=== PATIENT | male | born 1960 | race Caucasian/White ===

== ENCOUNTER 2022-01-12 16:22 | Observation (INO) | payer BC ==
[~2022-01-12] VITALS: Ht 180.3 cm; Wt 80.0 kg
[~2022-01-12 16:22] MED LIST: ALEV220C2 PO; CENTTAB47 PO
[2022-01-12] MEDS ORDERED: NS 1,000 ML IV ONE (16:30)
[2022-01-12 16:51] LABS: BASO % 0.3 % (0.0-1.0); EOS # 0.1 10^3/uL (0.0-0.5); HEMATOCRIT 40.1 % (42.0-52.0); HEMOGLOBIN 13.7 g/dl (13.5-17.5); LYMPH # 2.1 10^3/uL (1.5-5.0); LYMPH % 21.9 % (24.0-44.0); MEAN CORPUSCULAR HEMOGLOBIN 32.8 pg (27.0-33.0); MEAN CORPUSCULAR HGB CONC 34.2 g/dl (32.0-36.5); MEAN CORPUSCULAR VOLUME 95.9 fl (80.0-96.0); MONO # 0.6 10^3/uL (0.0-0.8); MONO % 6.4 % (2.0-8.0); NEUTROPHILS # 6.5 10^3/uL (1.5-8.5); NEUTROPHILS % 68.9 % (36.0-66.0); PLATELET COUNT, AUTOMATED 239 10^3/uL (150-450); RED BLOOD COUNT 4.18 10^6/uL (4.30-6.10); WHITE BLOOD COUNT 9.4 10^3/uL (4.0-10.0)
[2022-01-12] MEDS ORDERED: ISOVUE-370 76% 100ML VIAL As Ordered ONE ×2 (16:59→17:22)
[2022-01-12 17:12] LABS: INR 1.02; PROTHROMBIN TIME 13.8 SECONDS (12.7-14.5)
[2022-01-12 17:25] LABS: ALBUMIN 3.9 GM/DL (3.2-5.2); ALT/SGPT 28 U/L (12-78); AMYLASE 75 U/L (25-115); BILIRUBIN,DIRECT < 0.1 MG/DL (0.0-0.2); BILIRUBIN,TOTAL 0.4 MG/DL (0.2-1.0); ETHYL ALCOHOL (ETHANOL) 0.212 % (0.000-0.010); LIPASE 151 U/L (73-393); TOTAL PROTEIN 7.4 GM/DL (6.4-8.2)
[2022-01-12 17:26] LABS: CK-MB VALUE MASS 2.3 NG/ML (<3.6); MB/CK RELATIVE INDEX 0.83 (< OR =4)
[2022-01-12 17:46] LABS: RSV AMPLIFICATION NEGATIVE (NEGATIVE)
[2022-01-12 18:08] LABS: APPEARANCE, URINE CLEAR (CLEAR); BACTERIA, URINE AUTO NEGATIVE (NEGATIVE); BILIRUBIN, URINE AUTO NEGATIVE (NEGATIVE); BLOOD, URINE BLOOD 2+ (NEGATIVE); COLOR, URINE STRAW (YELLOW); GLUCOSE, URINE (UA) AUTO NEGATIVE (NEGATIVE); KETONE, URINE AUTO NEGATIVE (NEGATIVE); LEUKOCYTE ESTERASE, URINE AUTO NEGATIVE (NEGATIVE); MUCUS, URINE SMALL (NEGATIVE); NITRITE, URINE AUTO NEGATIVE (NEGATIVE); PROTEIN, URINE AUTO NEGATIVE (NEGATIVE); RBC, URINE AUTO 2 /HPF (0-3); SPECIFIC GRAVITY URINE AUTO 1.009 (1.002-1.035); SQUAMOUS EPITHELIAL CELL UR AU 0 /HPF (0-6); UROBILINOGEN, URINE AUTO 0.2 mg/dL (0.0-2.0); WBC, URINE AUTO 1 /HPF (0-3)
[2022-01-12 18:23] LABS: AMPHETAMINES LEVEL URINE NEGATIVE (NEGATIVE); BARBITURATES URINE NEGATIVE (NEGATIVE); BENZODIAZEPINES URINE NEGATIVE (NEGATIVE); CANNABINOIDS URINE POSITIVE (NEGATIVE); COCAINE METABOLITE URINE NEGATIVE (NEGATIVE); METHADONE URINE NEGATIVE (NEGATIVE); OPIATES URINE NEGATIVE (NEGATIVE); PHENCYCLIDINE URINE NEGATIVE (NEGATIVE)
[2022-01-12] MEDS ORDERED: MORPHINE 4 MG/ML 1ML VIAL/SYRINGE IV ONE (22:50)
[2022-01-13] MEDS ORDERED: NORCO, ANEXSIA 5/325MG TABLET (HYDROcodone/ACETAMINOPHEN) PO PRN (00:05)
[2022-01-13] MEDS ORDERED: SERT50TA29 PO (00:11)
[2022-01-13] MEDS ORDERED: ATOR1TAB19 PO (00:11)
[2022-01-13] MEDS ORDERED: ACET-683 PO (00:11)
[2022-01-13] MEDS ORDERED: HOME MED LIST COMPLETE! XX SCH (00:15)
[2022-01-13] MEDS ORDERED: HYDR-3715 PO (07:24)
[2022-01-13 09:00] VITALS: BP 139/85
== END 2022-01-13 10:17 | disposition home or self-care (01) ==
LOC: M ED 16:22 → EDBD 16:22 → M ED INP 16:23
PROVIDERS: ADMIT Surgery; ATTEND Surgery
DX: S09.90XA Unspecified injury of head, initial encounter (principal); S27.322A Contusion of lung, bilateral, initial encounter; S80.211A Abrasion, right knee, initial encounter; S80.212A Abrasion, left knee, initial encounter; S60.511A Abrasion of right hand, initial encounter; S60.512A Abrasion of left hand, initial encounter; S70.212A Abrasion, left hip, initial encounter; S22.43XA Multiple fractures of ribs, bilateral, initial encounter for closed fracture; V29.40XA Motorcycle driver injured in collision with unspecified motor vehicles in traffic accident, initial encounter; Y92.410 Unspecified street and highway as the place of occurrence of the external cause; Y99.9 Unspecified external cause status; E78.5 Hyperlipidemia, unspecified; F32.9 Major depressive disorder, single episode, unspecified; Z79.899 Other long term (current) drug therapy; Y93.55 Activity, bike riding
CPT/HCPCS: 36415; 70450; 70551; 71045; 71260; 72125; 72128; 72131; 72170; 74177; 80047; 80076; 80307; 81001; 82077; 82150; 82550; 82553; 83605; 83690; 85025; 85610; 85730; 86850; 86900; 86901; 87631; 93005; 93041; 94760; 96374; 96375; 99285; J2270; Q9967

== ENCOUNTER → 2022-01-23 | Outpatient (CLI) | payer BC ==
[~2022-01-23] MED LIST changes: +ACET-683 PO; +ATOR1TAB19 PO; +HYDR-3715 PO; +SERT50TA29 PO
== END ==
LOC: M OUTALCOH 08:28
PROVIDERS: ATTEND Psychiatry & Neurology Psychiatry
DX: Z02.89 Encounter for other administrative examinations (principal)

== ENCOUNTER → 2022-02-18 | Outpatient (RCR) | payer BC | LOC: M OUTALCOH 01-29 09:22 | PROVIDERS: ATTEND Psychiatry & Neurology Psychiatry | DX: F10.20 Alcohol dependence, uncomplicated (principal); F12.10 Cannabis abuse, uncomplicated ==

== ENCOUNTER → 2022-03-20 | Outpatient (RCR) | payer BC | LOC: M OUTALCOH 02-25 16:00 | PROVIDERS: ATTEND Psychiatry & Neurology Psychiatry | DX: F10.20 Alcohol dependence, uncomplicated (principal); F12.10 Cannabis abuse, uncomplicated ==

== ENCOUNTER 2022-03-26 13:30 | Outpatient (RCR) | payer BC | END 2022-04-20 | LOC: M OUTALCOH 13:30 | PROVIDERS: ATTEND Psychiatry & Neurology Psychiatry | DX: F10.10 Alcohol abuse, uncomplicated (principal); F12.10 Cannabis abuse, uncomplicated ==

== ENCOUNTER 2022-04-16 15:00 | Outpatient (RCR) | payer BC | END 2022-04-20 | LOC: M OUTALCOH 15:00 | PROVIDERS: ATTEND Psychiatry & Neurology Psychiatry | DX: F10.10 Alcohol abuse, uncomplicated (principal); F12.10 Cannabis abuse, uncomplicated ==

== ENCOUNTER 2022-08-02 06:15 | Emergency (ER) | payer BC ==
[~2022-08-02] VITALS: Ht 180.3 cm; Wt 84.1 kg
[2022-08-02 06:16] VITALS: BP 136/89
== END 2022-08-02 09:02 | disposition left against medical advice (07) ==
LOC: M ED 06:15
DX: Z53.21 Procedure and treatment not carried out due to patient leaving prior to being seen by health care provider (principal)

== ENCOUNTER 2022-08-02 10:29 | Emergency (ER) | payer BC ==
[~2022-08-02] VITALS: Ht 177.8 cm; Wt 83.2 kg
[2022-08-02] MEDS ORDERED: BOOSTRIX/ADACEL VACCINE (DIPHTH/PERTUSS/ACELL/TETANUS) 0.5ML SYR IM.IMMUN ONE (11:15)
[2022-08-02] MEDS ORDERED: LIDOCAINE W/EPINEPHRINE 1% 20ML VIAL SC ONE (11:15)
[2022-08-02] MEDS ORDERED: BACITRACIN OINTMENT 30GM TUBE TOP ONE (12:50)
[2022-08-02 13:05] VITALS: BP 118/70
== END 2022-08-02 13:07 | disposition home or self-care (01) ==
LOC: M ED 10:29
DX: S51.811A Laceration without foreign body of right forearm, initial encounter (principal); W26.8XXA Contact with other sharp object(s), not elsewhere classified, initial encounter; Y92.9 Unspecified place or not applicable; Y93.89 Activity, other specified; Y99.0 Civilian activity done for income or pay; Z23 Encounter for immunization

== ENCOUNTER → 2022-09-08 | Outpatient (CLI) | payer BC ==
[2022-09-08 14:36] LABS: BASO % 0.4 % (0.0-1.0); EOS # 0.1 10^3/uL (0.0-0.5); EOS % 1.2 % (0.0-3.0); HEMATOCRIT 37.8 % (42.0-52.0); HEMOGLOBIN 12.2 g/dl (13.5-17.5); LYMPH # 1.9 10^3/uL (1.5-5.0); LYMPH % 22.1 % (24.0-44.0); MEAN CORPUSCULAR HGB CONC 32.3 g/dl (32.0-36.5); MEAN CORPUSCULAR VOLUME 96.2 fl (80.0-96.0); MONO # 0.6 10^3/uL (0.0-0.8); MONO % 7.2 % (2.0-8.0); NEUTROPHILS # 5.8 10^3/uL (1.5-8.5); NEUTROPHILS % 68.7 % (36.0-66.0); PLATELET COUNT, AUTOMATED 266 10^3/uL (150-450); RED BLOOD COUNT 3.93 10^6/uL (4.30-6.10); WHITE BLOOD COUNT 8.5 10^3/uL (4.0-10.0)
[2022-09-08 15:05] LABS: RHEUMATOID FACTOR QUANT < 3.5 IU/ML (<14)
[2022-09-08 15:44] LABS: ERYTHROCYTE SEDIMENTATION RATE 56 mm/hr (0-20)
[2022-09-09 17:07] LABS: ANTINUCLEAR ANTIBODIES DIRECT Negative (Negative)
== END ==
LOC: M PLALAB 12:06
PROVIDERS: ATTEND Physician Assistant
DX: M17.12 Unilateral primary osteoarthritis, left knee (principal)

== ENCOUNTER → 2022-12-31 | Outpatient (REF) | payer BC ==
[2022-12-31 14:54] LABS: FERRITIN 126.1 NG/ML (10.5-307.3); FOLATE > 24.0 NG/ML (>5.4)
[2022-12-31 14:55] LABS: VITAMIN B12 LEVEL 550 PG/ML (211-911)
== END ==
LOC: M LAB REF 12:38
PROVIDERS: ATTEND Family Medicine
DX: D64.9 Anemia, unspecified (principal)

== ENCOUNTER → 2023-07-03 | Outpatient (REF) | payer BC ==
[2023-07-03 13:18] LABS: BASO # 0.1 10^3/uL (0.0-0.2); BASO % 0.6 % (0.0-1.0); EOS # 0.2 10^3/uL (0.0-0.5); EOS % 2.7 % (0.0-3.0); HEMOGLOBIN 14.5 g/dl (13.5-17.5); LYMPH # 2.3 10^3/uL (1.5-5.0); LYMPH % 27.7 % (24.0-44.0); MEAN CORPUSCULAR VOLUME 97.1 fl (80.0-96.0); MONO # 0.7 10^3/uL (0.0-0.8); MONO % 8.2 % (2.0-8.0); NEUTROPHILS # 5.1 10^3/uL (1.5-8.5); NEUTROPHILS % 60.4 % (36.0-66.0); PLATELET COUNT, AUTOMATED 244 10^3/uL (150-450); RED BLOOD COUNT 4.53 10^6/uL (4.30-6.10); WHITE BLOOD COUNT 8.4 10^3/uL (4.0-10.0)
[2023-07-03 13:25] LABS: ALKALINE PHOSPHATASE 62 U/L (46-116); ALT/SGPT 17 U/L (7.0-40); AST/SGOT 17 U/L (<34); BILIRUBIN,TOTAL 0.5 MG/DL (0.3-1.2); BLOOD UREA NITROGEN 13 MG/DL (9-23); CALCIUM LEVEL 9.5 MG/DL (8.3-10.6); CARBON DIOXIDE LEVEL 28 MMOL/L (20-31); CHLORIDE LEVEL 108 MMOL/L (98-107); CHOLESTEROL LEVEL 277 MG/DL (<200); CHOLESTEROL RISK RATIO 5.73 (<5); CREATININE FOR GFR 0.78 MG/DL (0.70-1.30); GLOMERULAR FILTRATION RATE > 60.0 (>49); GLUCOSE, FASTING 92 MG/DL (74-106); HDL CHOLESTEROL 48.3 MG/DL (>40); LDL CHOLESTEROL 195.1 MG/DL (<100); NON-HDL-C 228.7 MG/DL; POTASSIUM SERUM 4.1 MMOL/L (3.5-5.1); SODIUM LEVEL 142 MMOL/L (136-145); TOTAL PROTEIN 7.1 G/DL (5.7-8.2); TRIGLYCERIDES LEVEL 168 MG/DL (<150)
[2023-07-03 13:26] LABS: THYROID STIMULATING HORMONE 1.583 uIU/ML (0.55-4.78)
== END ==
LOC: M LAB REF 11:58
PROVIDERS: ATTEND Family Medicine
DX: E78.5 Hyperlipidemia, unspecified (principal); F52.21 Male erectile disorder; Z79.899 Other long term (current) drug therapy
CPT/HCPCS: 80053; 80061; 84443; 85025; G0103

== ENCOUNTER → 2024-07-11 | Outpatient (REF) | payer MEDICARE | LOC: M SFHCDERM 16:47 | PROVIDERS: ATTEND Nurse Practitioner Family | DX: C44.229 Squamous cell carcinoma of skin of left ear and external auricular canal (principal) ==

== ENCOUNTER → 2025-01-04 | Outpatient (REF) | payer MEDICARE | LOC: M LAB REF 11:57 | PROVIDERS: ATTEND Family Medicine | DX: M25.562 Pain in left knee (principal) ==